=== PATIENT | female | born 1940 | race Caucasian/White ===

== ENCOUNTER 2017-10-13 10:02 | Observation (INO) | payer MEDICARE, OTHER ==
[2017-10-13 10:55] LABS: #Lymphocytes 0.7 thou/uL (1.20-3.40); #Monocytes 0.3 thou/uL (0.11-0.59); #Neutrophils 4.9 thou/uL (1.40-6.50); %Basophils 0.4 % (0.0-1.0); %Eosinophils 0.5 % (0.0-10.0); %Lymphocytes 11.9 % (21.0-51.0); %Neutrophils 82.1 % (42.0-75.0); Hemoglobin 10.7 g/dL (12.0-16.0); Mean Corpuscular HGB CONC 31.3 g/dL (32.0-36.0); Mean Corpuscular Hemoglobin 26.1 pg (27.0-31.0); Mean Corpuscular Volume 83.4 fl (81.0-99.0); Mean Platelet Volume 6.8 fL (7.4-10.4); Platelet Count 198 thou/uL (130-400); RBC Distribution Width 15.4 % (11.5-14.5); Red Blood Cell (RBC) Count 4.08 mill/uL (4.20-5.40); White Blood Cell (WBC) Count 5.9 thou/uL (4.8-10.8)
[2017-10-13 11:18] LABS: Bilirubin Negative (Negative); Blood, Urine Negative (Negative); Glucose, Urine (Dipstick) Negative (Negative); Leukocyte Negative (Negative); Nitrite Negative (Negative); Protein, Urine (Dipstick) 30 mg/dL (Neg-Trace); Urobilinogen 0.2 mg/dL (0.2-1.0)
[2017-10-13 11:19] LABS: Clarity Clear (Clear)
[2017-10-13 11:20] LABS: ALT (SGPT) 26 U/L (8-55); AST (SGOT) 24 U/L (5-34); Albumin 3.4 g/dL (3.4-4.8); Alkaline Phosphatase 130 U/L (40-150); Anion Gap 12 mmol/L (10-20); BUN (Urea Nitrogen) 19 mg/dL (9.8-20.1); Bilirubin, Total 0.4 mg/dL (0.2-1.2); Calc. Creatinine Clearance 0 mL/min (70-130); Calcium 8.7 mg/dL (7.8-10.44); Carbon Dioxide 20 mmol/L (23-31); Chloride 110 mmol/L (98-107); Estimated GFR-MDRD 69; Globulin 2.7 g/dL (2.4-3.5); Glucose 116 mg/dL (83-110); Protein, Total 6.1 g/dL (6.0-8.3); Sodium 138 mmol/L (136-145)
[2017-10-13 11:24] LABS: Specific Gravity, Urine 1.022 (1.002-1.036)
[2017-10-13 11:24] LABS: CKMB 1.5 ng/mL (0-6.6)
[2017-10-13 11:31] LABS: Troponin I Less than 0.010 ng/mL (< 0.028)
[2017-10-13 11:38] LABS: RBC/HPF 0-3 HPF (0-3); Squamous Epithelial 0-3 HPF (0-3); WBC/HPF 0-3 HPF (0-3)
[2017-10-13 11:39] LABS: Bacteria/HPF None Seen HPF (None Seen); Renal Epithelial 0-3 HPF (0-3); Transitional Epithelial 0-3 HPF (0-3)
[2017-10-13 11:40] LABS: Other Casts/LPF 4-6 COARSE GRAN LPF (0-3 Hyaline)
--- NOTE | 2017-10-13 11:40 | CT ---
CT BRAIN WITHOUT CONTRAST: Date: 10/13/17 HISTORY: Fall, syncope. FINDINGS: No evidence of acute infarct, hemorrhage, midline shift, or abnormal extra-axial fluid collections ar e seen. There are changes of chronic small vessel ischemic disease in the periventricular white matte r. The bony calvarium is intact. There is mucosal disease in the right maxillary sinus. IMPRESSION: No CT evidence of acute intracranial process. POS: [facility]
--- NOTE | 2017-10-13 11:44 | CT ---
CT CERVICAL SPINE WITH CORONAY AND SAGITTAL REFORMATIONS: Date: 10/13/17 HISTORY: Syncope, fall, neck pain. FINDINGS/IMPRESSION: Degenerative changes are present in the cervical spine. No acute fracture or subluxation is identifie d. POS: [facility]
--- NOTE | 2017-10-13 11:48 | RAD ---
PORTABLE CHEST 1 VIEW: Date: 10/13/17 Time: 1115 hours HISTORY: Fall, syncope. Recently diagnosed with dementia. FINDINGS: The heart size is normal. The lungs are expanded without focal areas of consolidation, pneumothorax, mckenzie pulmonary edema, or pleural effusions. There are postop changes in the left axilla. IMPRESSION: No radiographic evidence of acute cardiopulmonary process. POS: [facility]
[2017-10-13] MEDS ORDERED: Acetaminophen 325 MG TAB PO PRN (14:11)
[2017-10-13] MEDS ORDERED: Ondansetron HCl/PF 4 MG/2 ML Vial IVP PRN (14:11)
[2017-10-13] MEDS ORDERED: Senokot 8.6 MG TAB PO PRN (14:11)
[2017-10-13] MEDS ORDERED: Guaifenesin DM 100-10/5 ML UDCUP PO PRN (14:11)
[2017-10-13] MEDS ORDERED: Mag-Al 1200 mg/1200 mg/30 ML UDCUP PO PRN (14:11)
[2017-10-13] MEDS ORDERED: Pepto Bismol Chew TAB PO PRN (14:11)
[2017-10-13] MEDS ORDERED: Sodium Chloride 0.9% 1,000 ML IV SCH (14:15)
[2017-10-13] MEDS ORDERED: Aspirin 81 mg Enteric Coated Tablet PO SCH (14:30)
[2017-10-13 14:44] VITALS: BMI 23.9
--- NOTE | 2017-10-13 15:49 | MRI ---
MRI BRAIN WITHOUT CONTRAST: Date: 10/13/17 HISTORY: Syncope. TIA. Fall. FINDINGS: Correlation is made with CT scan from earlier today. No restricted diffusion is seen. Changes of cortical atrophy and chronic small vessel ischemic diseas e are present. The basilar cisterns are patent and the ventricular size is appropriate. No evidence o f infarct, hemorrhage, midline shift, or abnormal extra-axial fluid collections are seen. There is mu cosal disease in the right maxillary sinus. IMPRESSION: No evidence of acute intracranial process. POS: [facility]
[2017-10-13] MEDS ORDERED: Donepezil HCl 5 MG TAB PO SCH (21:00)
[2017-10-13] MEDS ORDERED: Atorvastatin Calcium 10 MG TAB PO SCH (21:00)
[2017-10-13] MEDS: Famotidine 20 MG TAB PO SCH (21:10)
--- NOTE | 2017-10-13 23:47 | HP ---
REASON FOR ADMISSION: Syncope. HISTORY OF PRESENTING ILLNESS: Please note majority of this history was obtained by talking to the gregoria miner's daughter who is here at bedside, as the patient does not recall what happened. She was in t he shower on a shower chair. When she tried to get up, felt dizzy, dazed, and was disoriented. She apparently passed out for less than 5 minutes per family. This was witnessed by her puzzle assembler, who c omes to take care of her from 8 to 5:00 p.m., 7 days a week. Currently, she has no complaints of d[address] pain, palpitation, PND, or orthopnea. She has underlying dementia and is able to respond to verba l questions appropriately at present. PAST MEDICAL AND SURGICAL HISTORY: History of breast cancer with left mastectomy, in remission; jackie ntia, which has been progressive. CURRENT MEDICATIONS: Donepezil 5 mg twice daily, vitamin D daily, cranberry pill daily. She is off aspirin for the last 3 weeks due to the scratches she has been getting for her pets and the family de cided to stop it due to bleeding. ALLERGIES: ZOFRAN. PERSONAL HISTORY: Does not abuse alcohol or drugs. No history of smoking. FAMILY HISTORY: Mother in her 70s. She apparently in the operating room when she was take n for fracture of her hip. She had history of osteoporosis. She does not know much about her father . CODE STATUS: FULL. The patient has advance directives. Power of securities attorney is her daughter, her name is Ximena, number to reach her is [phone]. REVIEW OF SYSTEMS: The following complete review of systems was negative, unless otherwise mentioned in the HPI or below: Constitutional: Weight loss or gain, ability to conduct usual activities. Skin: Rash, itching. Eyes: Double vision, pain. ENT/Mouth: Nose bleeding, neck stiffness, pain, tenderness. Cardiovascular: Palpitations, dyspnea on exertion, orthopnea. Respiratory: Shortness of breath, wheezing, cough, hemoptysis, fever or night sweats. Gastrointestinal: Poor appetite, abdominal pain, heartburn, nausea, vomiting, constipation, or diarr hea. Genitourinary: Urgency, frequency, dysuria, nocturia. Musculoskeletal: Pain, swelling. Neurologic/Psychiatric: Anxiety, depression. Allergy/Immunologic: Skin rash, bleeding tendency. PHYSICAL EXAMINATION: GENERAL: The patient is a 77-year-old female, who is currently not in any acute distress. VITAL SIGNS: Blood pressure 130/50, pulse 60 per minute, respiratory rate 20 per minute, temperature 98.2 degrees Fahrenheit, saturating 93% on room air. NECK: Supple. No elevated JVD. HEENT: Eyes, extraocular muscles intact. Pupils are reacting to light. Oral cavity, mucous membran es are moist. No exudates or congestion. CARDIOVASCULAR: S1, S2 heard. Regular rhythm. RESPIRATORY: Air entry 1+ bilateral. No rales or rhonchi. ABDOMEN: Soft. Bowel sounds heard. No tenderness, rigidity, or guarding. EXTREMITIES: No peripheral edema or calf tenderness. VASCULAR SYSTEM: Peripheral pulses 1+ bilateral. No ischemic ulcerations or gangrene. CENTRAL NERVOUS SYSTEM: No gross focal deficits noted. The patient is right handed. Strength is eq ual in all 4 extremities. No gross focal sign seen. PSYCHIATRIC: The patient does not have any hallucinations or delusions at present. She responds to verbal questions, but is not fully oriented. LABORATORY AND X-RAY FINDINGS: Chest x-ray done shows no acute cardiopulmonary process. CT cervical spine done shows degenerative changes with no acute fracture or subluxation seen. CT brain shows no acute intracranial process. There are changes of chronic small-vessel ischemic changes in the periv entricular white matter. UA is negative for any infection. Serum bicarbonate 20, BUN 19, creatinine 0.8, glucose 116. Liver enzymes within normal limits. Troponin is negative. BNP is 25. Albumin i s 3.4. White count of 5, H&H 10 and 34, platelet count 198 with 82% neutrophils. CLINICAL IMPRESSION AND PLAN: The patient will be under observation on stroke unit to rule out trans ient ischemic attack versus syncope. We will place her on aspirin and small dose of Lipitor and cont inue her donepezil as before. An MRI of the brain will be obtained without contrast and she will be on normal saline at 50 mL per hour for now. The patient has had orthostatic blood pressures done in the ER, which was negative. Code status was discussed with the patient and family. She is a [employer] [place] and has advanced directives. She will be under observation and may be discharged in the morning o nce all the workup is negative. PT/OT evaluations will be requested as well. She lives alone and lowe s dementia. She has puzzle assembler 8:00 a.m. to 5:00 p.m., 5 to 7 days a week. She stays by herself at [facility] and has been having progressive dementia per family.
[2017-10-14 05:09] LABS: #Eosinphils 0.1 thou/uL (0.0-0.7); #Lymphocytes 1.4 thou/uL (1.20-3.40); #Monocytes 0.4 thou/uL (0.11-0.59); #Neutrophils 2.4 thou/uL (1.40-6.50); %Basophils 0.3 % (0.0-1.0); %Eosinophils 2.1 % (0.0-10.0); %Monocytes 9.5 % (0.0-10.0); %Neutrophils 56.1 % (42.0-75.0); Hemoglobin 9.4 g/dL (12.0-16.0); Mean Corpuscular HGB CONC 32.1 g/dL (32.0-36.0); Mean Corpuscular Hemoglobin 26.3 pg (27.0-31.0); Mean Corpuscular Volume 81.9 fl (81.0-99.0); Mean Platelet Volume 6.5 fL (7.4-10.4); Platelet Count 175 thou/uL (130-400); RBC Distribution Width 15.2 % (11.5-14.5); Red Blood Cell (RBC) Count 3.56 mill/uL (4.20-5.40); White Blood Cell (WBC) Count 4.3 thou/uL (4.8-10.8)
[2017-10-14 05:17] LABS: Anion Gap 10 mmol/L (10-20); BUN (Urea Nitrogen) 14 mg/dL (9.8-20.1); Calc. Creatinine Clearance 76 mL/min (70-130); Calcium 8.3 mg/dL (7.8-10.44); Carbon Dioxide 23 mmol/L (23-31); Cardiac Risk 4.2 (Less than 4.5); Chloride 111 mmol/L (98-107); Cholesterol 205 mg/dl (< 200 Desired); Estimated GFR-MDRD 82; Glucose 93 mg/dL (83-110); HDL Cholesterol 49 mg/dL (>60 Neg Risk); LDL Cholesterol, Calculated 138 mg/dL; Potassium 3.6 mmol/L (3.5-5.1); Sodium 140 mmol/L (136-145); Triglycerides 92 mg/dL (Less than 150)
[2017-10-14 07:55] VITALS: TEMP 98.6
[2017-10-14] MEDS: Famotidine 20 MG TAB PO SCH (08:27)
[2017-10-14] MEDS ORDERED: Aspirin 81 mg Enteric Coated Tablet PO SCH (09:00)
[2017-10-14] MEDS ORDERED: Enoxaparin Sodium 40 MG/0.4 ML SYRINGE SC SCH (09:00)
[2017-10-14 09:15] VITALS: BP 145/57
--- NOTE | 2017-10-14 13:01 | PDOC.PN ---
- Subjective Encounter Start Date: 10/14/17 Encounter Start Time: 09:00 Subjective: awake, slept well last night -: no complaints, family at bedside - Objective Resuscitation Status: Resuscitation Status FULL:Full Resuscitation MAR Reviewed: Yes Vital Signs & Weight: Vital Signs (12 hours) Temp Pulse Pulse Pulse Pulse Resp BP 10/14/17 08:40 57 L 62 69 145/57 H 10/14/17 08:27 98.6 F 58 L 16 10/14/17 07:54 98.6 F 58 L 16 10/14/17 03:30 98.7 F 68 16 BP BP BP Pulse Ox 10/14/17 08:40 166/62 H 148/66 H 10/14/17 08:27 10/14/17 07:54 140/62 100 10/14/17 03:30 157/63 H 98 Weight Weight 157 lb 9.608 oz I&O: 10/13/17 10/14/17 10/15/17 06:59 06:59 06:59 Intake Total 1779 Output Total 200 Balance 1579 Result Diagrams: 10/14/17 04:53 10/14/17 04:53 Phys Exam - Physical Examination HEENT: PERRLA, moist MMs Neck: no JVD, supple Respiratory: no wheezing, no rales Cardiovascular: RRR, no significant murmur Gastrointestinal: soft, non-tender, positive bowel sounds Musculoskeletal: no edema, pulses present Neurological: non-focal, moves all 4 limbs Dx/Plan (1) Syncope Code(s): R55 - SYNCOPE AND COLLAPSE Status: Resolved (2) Dementia Code(s): F03.90 - UNSPECIFIED DEMENTIA WITHOUT BEHAVIORAL DISTURBANCE Status: Chronic Qualifiers: Dementia type: Alzheimer's disease Dementia behavioral disturbance: without behavioral disturbance (3) Dyslipidemia Code(s): E78.5 - HYPERLIPIDEMIA, UNSPECIFIED Status: Acute (4) Chronic anemia Code(s): D64.9 - ANEMIA, UNSPECIFIED Status: Chronic Comment: likely nutritional - Plan neuro/hemostable -: MRI no cva -: dc pt home -: family given full updates at bedside * . Review of Systems - Medications/Allergies Allergies/Adverse Reactions: Allergies Allergy/AdvReac Type Severity Reaction Status Date / Time No Known Drug Allergies Allergy Verified 10/13/17 14:29
--- NOTE | 2017-10-14 22:41 | DIS ---
DATE OF ADMISSION: 10/13/2017 DATE OF DISCHARGE: 10/14/2017 DISCHARGE DISPOSITION: To home. PRIMARY DISCHARGE DIAGNOSES: Syncope with unclear etiology, dementia, dyslipidemia, chronic anemia. PROCEDURES DONE DURING HOSPITALIZATION: Patient has had initial CT brain done which showed no acute intracranial abnormalities. CT cervical spine showed degenerative changes with no acute fracture or subluxation. MRI brain showed no acute intracranial process. Hemoglobin and hematocrit 9.4 and 29, platelet count 175, MCV is 81. White count was 4.3, total cholesterol 205, triglycerides 92, LDL 138. BNP was 25. One set of troponin was negative. DISCHARGE MEDICATIONS: Aspirin 81 mg p.o. daily, Lipitor 10 mg p.o. at bedtime , donepezil 5 mg p.o. at bedtime. ALLERGIES: No known drug allergies. DISCHARGE PLAN: Patient to follow up with primary care physician in 1 week. BRIEF COURSE DURING HOSPITALIZATION: Patient initially was brought to emergency room after she passed out while she was in the shower on a shower chair. In view of this history, she was placed under observation on the stroke unit. The patient has underlying dementia. She did not have any focal deficits. She has had CT brain and MRI brain done, both of which showed no acute CVA. Orthostatic blood pressures were within normal limits. She was gently hydrated during her stay here. Telemetry has not revealed any arrhythmia during her brief stay here. The patient has caregivers 7 days a week from 8:00 p.m. to 5:00 p.m. She is being discharged home. All updates were given to patient's daughter at bedside. She is hemodynamically and neurologically stable at the time of discharge. Please see face to face documentation on [facility] for the day of discharge. JIAND
== END 2017-10-14 11:54 | disposition home or self-care (01) ==
LOC: ERS 10:02 → 2SE 12:58
PROVIDERS: ADMIT Internal Medicine; ATTEND Internal Medicine
DX: R55 Syncope and collapse (principal); F03.90 Unspecified dementia, unspecified severity, without behavioral disturbance, psychotic disturbance, mood disturbance, and anxiety; E78.5 Hyperlipidemia, unspecified; D53.9 Nutritional anemia, unspecified; Z85.3 Personal history of malignant neoplasm of breast; Z79.899 Other long term (current) drug therapy; Z88.8 Allergy status to other drugs, medicaments and biological substances; Z90.12 Acquired absence of left breast and nipple
CPT/HCPCS: 51701; 70450; 70551; 71045; 72125; 80048; 80053; 80061; 82553; 83880; 84484; 85025 ×2; 93005; 94760; 96360; 96361 ×2; 96372; 97139; 99285; G0378; G8978; G8979; G8980; 36415; 81003; 81015; A4353; J1650

== ENCOUNTER 2021-04-16 11:15 | Emergency (ER) | payer MEDICARE, OTHER ==
[2021-04-16 12:32] LABS: #Eosinphils 0.2 thou/uL (0.0-0.7); #Lymphocytes 1.5 thou/uL (1.20-3.40); #Monocytes 0.4 thou/uL (0.11-0.59); #Neutrophils 4.1 thou/uL (1.40-6.50); %Basophils 0.8 % (0.0-1.0); %Eosinophils 2.5 % (0.0-10.0); %Lymphocytes 24.1 % (21.0-51.0); %Monocytes 6.4 % (0.0-10.0); %Neutrophils 66.3 % (42.0-75.0); Hemoglobin 14.9 g/dL (12.0-16.0); Mean Corpuscular HGB CONC 34.1 g/dL (32.0-36.0); Mean Corpuscular Hemoglobin 35.1 pg (27.0-31.0); Mean Platelet Volume 6.8 fL (7.4-10.4); Platelet Count 175 thou/uL (130-400); RBC Distribution Width 12.7 % (11.5-14.5); Red Blood Cell (RBC) Count 4.24 mill/uL (4.20-5.40); White Blood Cell (WBC) Count 6.3 thou/uL (4.8-10.8)
[2021-04-16 12:47] LABS: ALT (SGPT) Less than 7 U/L (8-55); AST (SGOT) 17 U/L (5-34); Alkaline Phosphatase 168 U/L (40-110); Anion Gap 15 mmol/L (10-20); BUN (Urea Nitrogen) 15 mg/dL (9.8-20.1); Bilirubin, Total 0.6 mg/dL (0.2-1.2); CK (CPK) 98 U/L (29-168); Calc. Creatinine Clearance 0 mL/min (70-130); Calcium 9.2 mg/dL (7.8-10.44); Carbon Dioxide 23 mmol/L (23-31); Chloride 105 mmol/L (98-107); Globulin 3.1 g/dL (2.4-3.5); Glucose 77 mg/dL (83-110); Potassium 4.1 mmol/L (3.5-5.1); Protein, Total 7.1 g/dL (5.8-8.1); Sodium 139 mmol/L (136-145)
== END 2021-04-16 14:40 ==
LOC: ERS 11:15
DX: F03.90 Unspecified dementia, unspecified severity, without behavioral disturbance, psychotic disturbance, mood disturbance, and anxiety (principal); W18.30XA Fall on same level, unspecified, initial encounter; Y92.129 Unspecified place in nursing home as the place of occurrence of the external cause
CPT/HCPCS: 36415; 70450; 71045; 72125; 72170; 80053; 82550; 84484; 85025; 93005

== ENCOUNTER 2022-05-13 09:59 | Emergency (ER) | payer MEDICARE, OTHER ==
[2022-05-13 10:52] LABS: #Eosinphils 0.1 thou/uL (0.0-0.7); #Lymphocytes 1.7 thou/uL (1.20-3.40); #Monocytes 0.4 thou/uL (0.11-0.59); #Neutrophils 3.3 thou/uL (1.40-6.50); %Basophils 0.1 % (0.0-1.0); %Eosinophils 2.2 % (0.0-10.0); %Monocytes 7.5 % (0.0-10.0); %Neutrophils 60.1 % (42.0-75.0); Hemoglobin 13.6 g/dL (12.0-16.0); Mean Corpuscular Hemoglobin 33.8 pg (27.0-31.0); Mean Platelet Volume 6.9 fL (7.4-10.4); Platelet Count 158 10x3/uL (130-400); RBC Distribution Width 12.5 % (11.5-14.5); Red Blood Cell (RBC) Count 4.04 mill/uL (4.20-5.40); White Blood Cell (WBC) Count 5.5 10x3/uL (4.8-10.8)
[2022-05-13 11:15] LABS: ALT (SGPT) 19 U/L (8-55); AST (SGOT) 13 U/L (5-34); Albumin 3.5 g/dL (3.4-4.8); Alkaline Phosphatase 136 U/L (40-110); Anion Gap 9 mmol/L (10-20); BUN (Urea Nitrogen) 11 mg/dL (9.8-20.1); Bilirubin, Total 1.1 mg/dL (0.2-1.2); Calc. Creatinine Clearance 0 mL/min (70-130); Calcium 8.7 mg/dL (7.8-10.44); Carbon Dioxide 23 mmol/L (23-31); Chloride 109 mmol/L (98-107); Estimated GFR 81; Globulin 2.6 g/dL (2.4-3.5); Glucose 96 mg/dL (83-110); Potassium 3.4 mmol/L (3.5-5.1); Protein, Total 6.1 g/dL (5.8-8.1); Sodium 138 mmol/L (136-145)
== END 2022-05-13 13:05 | disposition home or self-care (01) ==
LOC: ERS 09:59
DX: R06.82 Tachypnea, not elsewhere classified (principal); Z79.82 Long term (current) use of aspirin
CPT/HCPCS: 36415; 71045; 80053; 83880; 84484; 85025; 93005